=== PATIENT | male | born 1960 | race Caucasian/White ===

== ENCOUNTER 2023-06-17 03:08 | Inpatient (IN) | payer OTHER ==
[2023-06-17 05:37] VITALS: BMI 31.1
[2023-06-17] MEDS ORDERED: Ondansetron PF 4 MG/2 ML Vial IVP PRN (06:08)
[2023-06-17] MEDS ORDERED: Acetaminophen 325 MG TAB PO PRN (06:08)
[2023-06-17 06:41] LABS: Hematocrit 37.1 % (42.0-52.0); Hemoglobin 12.2 g/dL (14.0-18.0); Manual Diff?? YES; Mean Corpuscular HGB CONC 32.9 g/dL (32.0-36.0); Mean Corpuscular Hemoglobin 30.3 pg (27.0-31.0); Mean Corpuscular Volume 92.3 fl (78.0-98.0); Mean Platelet Volume 11.5 fL (7.4-10.4); Platelet Count 90 10x3/uL (130-400); RBC Distribution Width 15.8 % (11.5-14.5); Red Blood Cell (RBC) Count 4.02 mill/uL (4.70-6.10); White Blood Cell (WBC) Count 9.8 10x3/uL (4.8-10.8)
[2023-06-17 06:43] LABS: Delete Auto Diff?? YES
[2023-06-17 06:58] LABS: ALT (SGPT) 26 U/L (8-55); AST (SGOT) 41 U/L (5-34); Albumin 2.9 g/dL (3.4-4.8); Alkaline Phosphatase 114 U/L (40-110); Anion Gap 13 mmol/L (10-20); BUN (Urea Nitrogen) 55 mg/dL (8.4-25.7); Bilirubin, Total 1.5 mg/dL (0.2-1.2); Calc. Creatinine Clearance 52 mL/min (70-130); Calcium 8.9 mg/dL (7.8-10.44); Carbon Dioxide 18 mmol/L (23-31); Chloride 106 mmol/L (98-107); Estimated GFR 34; Globulin 3.8 g/dL (2.4-3.5); Glucose 90 mg/dL (80-115); Potassium 3.6 mmol/L (3.5-5.1); Protein, Total 6.7 g/dL (5.8-8.1); Sodium 133 mmol/L (136-145)
[2023-06-17] MEDS: HYDROcodone/Acetaminophen 5/325 mg Tablet PO SCH (07:05)
[2023-06-17 07:23] LABS: Band 24 % (5-11); Burr Cells SLIGHT = 2-5 cells HPF (0-1); CellaVision Operator ID LAB.KW3; Eosinophils 1 % (0-10); Monocytes 4 % (0-10); Neutrophil 71 % (42-75); Platelet Adequacy Comment Platelets Decreased; Poikilocytosis SLIGHT = 6-15 cells HPF (0-5); Polychromasia SLIGHT = 2-3 cells HPF (0-2); Total Cell Count 100
[2023-06-17] MEDS ORDERED: Vancomycin 1 GM in Sodium Chloride 0.9% 250 ML 250 ML IVPB SCH (09:00)
[2023-06-17] MEDS ORDERED: Lisinopril 10 MG TAB PO SCH (09:00)
[2023-06-17] MEDS ORDERED: Amiodarone 200 MG TAB PO SCH (09:00)
[2023-06-17] MEDS ORDERED: Carvedilol 6.25 MG TAB PO SCH (09:00)
[2023-06-17] MEDS: Aspirin 81 mg Enteric Coated Tablet PO SCH (10:16)
[2023-06-17] MEDS: cefTRIAXone\\ROCEPHIN 2 GM in Sodium Chloride 0.9% 100 ML IVPB SCH (10:16)
[2023-06-17] MEDS: Clopidogrel Bisulfate 75 MG TAB PO SCH (10:17)
[2023-06-17] MEDS: Fluconazole 100 MG TAB PO SCH (10:17)
[2023-06-17] MEDS: methylPREDNISolone Sod Succ/PF 125 MG/2 ML VIAL IVP SCH (10:17)
[2023-06-17] MEDS: Loratadine 10 MG TAB PO SCH (10:17)
[2023-06-17] MEDS: HYDROcodone/Acetaminophen 5/325 mg Tablet PO PRN (10:38)
[2023-06-17] MEDS: Vancomycin (BATCH) 2 GM in Premix 1 BAG IVPB SCH (10:39)
[2023-06-17] MEDS ORDERED: Vancomycin (BATCH) 1.25 GM in Premix 1 BAG IVPB SCH (12:00)
[2023-06-17] MEDS: Atorvastatin Calcium 40 MG TAB PO SCH (20:37)
[2023-06-18 05:56] LABS: Hematocrit 38.8 % (42.0-52.0); Hemoglobin 12.7 g/dL (14.0-18.0); Manual Diff?? YES; Mean Corpuscular HGB CONC 32.7 g/dL (32.0-36.0); Mean Corpuscular Volume 91.7 fl (78.0-98.0); Mean Platelet Volume 11.8 fL (7.4-10.4); Red Blood Cell (RBC) Count 4.23 mill/uL (4.70-6.10); White Blood Cell (WBC) Count 9.3 10x3/uL (4.8-10.8)
[2023-06-18 06:00] LABS: Delete Auto Diff?? YES; Platelet Count 89 10x3/uL (130-400)
[2023-06-18 06:19] LABS: Anion Gap 11 mmol/L (10-20); BUN (Urea Nitrogen) 42 mg/dL (8.4-25.7); Calc. Creatinine Clearance 100 mL/min (70-130); Calcium 8.7 mg/dL (7.8-10.44); Carbon Dioxide 19 mmol/L (23-31); Chloride 110 mmol/L (98-107); Estimated GFR 75; Glucose 153 mg/dL (80-115); Potassium 4.3 mmol/L (3.5-5.1); Sodium 136 mmol/L (136-145)
[2023-06-18 06:27] LABS: Anisocytosis SLIGHT = 6-15 cells HPF (0-5); Band 16 % (5-11); Burr Cells SLIGHT = 2-5 cells HPF (0-1); CellaVision Operator ID lab.sh2; Lymphocytes 2 % (21-51); Macrocytosis SLIGHT = 6-15 cells HPF (0-5); Neutrophil 82 % (42-75); Ovalocytes SLIGHT = 2-5 cells HPF (0-1); Platelet Adequacy Comment Platelets Decreased; Poikilocytosis SLIGHT = 6-15 cells HPF (0-5); Polychromasia SLIGHT = 2-3 cells HPF (0-2); Total Cell Count 100
[2023-06-18] MEDS: Vancomycin (BATCH) 1.25 GM in Premix 1 BAG IVPB SCH (09:25)
[2023-06-18] MEDS ORDERED: Vancomycin (BATCH) 1.25 GM in Premix 1 BAG IVPB SCH (11:00)
[2023-06-19 04:37] LABS: #Monocytes 0.5 thou/uL (0.11-0.59); #Neutrophils 9.2 thou/uL (1.40-6.50); %Basophils 0.3 % (0.0-1.0); %Lymphocytes 5.9 % (21.0-51.0); %Monocytes 4.7 % (0.0-10.0); %Neutrophils 87.8 % (42.0-75.0); Hematocrit 38.3 % (42.0-52.0); Hemoglobin 12.6 g/dL (14.0-18.0); Mean Corpuscular HGB CONC 32.9 g/dL (32.0-36.0); Mean Corpuscular Hemoglobin 30.1 pg (27.0-31.0); Mean Corpuscular Volume 91.4 fl (78.0-98.0); Mean Platelet Volume 11.9 fL (7.4-10.4); Platelet Count 110 10x3/uL (130-400); RBC Distribution Width 16.3 % (11.5-14.5); Red Blood Cell (RBC) Count 4.19 mill/uL (4.70-6.10); White Blood Cell (WBC) Count 10.4 10x3/uL (4.8-10.8)
[2023-06-19 04:58] LABS: Anion Gap 10 mmol/L (10-20); BUN (Urea Nitrogen) 42 mg/dL (8.4-25.7); Calc. Creatinine Clearance 110 mL/min (70-130); Calcium 9.4 mg/dL (7.8-10.44); Carbon Dioxide 23 mmol/L (23-31); Chloride 110 mmol/L (98-107); Estimated GFR 84; Glucose 146 mg/dL (80-115); Sodium 139 mmol/L (136-145)
[2023-06-19] MEDS: Vancomycin 1 GM in Premix 1 BAG IVPB SCH (11:08)
[2023-06-19] MEDS: Amlodipine 10 MG TAB PO SCH (12:35)
[2023-06-19] MEDS: Carvedilol 6.25 MG TAB PO SCH (15:49)
[2023-06-19] MEDS: Lisinopril 10 MG TAB PO SCH (15:49)
[2023-06-20] MEDS: Amiodarone 200 MG TAB PO SCH (09:12)
[2023-06-20] MEDS: Lisinopril 10 MG TAB PO SCH (09:12)
[2023-06-20 17:57] LABS: #Monocytes 0.4 thou/uL (0.11-0.59); %Basophils 0.2 % (0.0-1.0); %Monocytes 6.7 % (0.0-10.0); %Neutrophils 83.3 % (42.0-75.0); Hemoglobin 12.9 g/dL (14.0-18.0); Mean Corpuscular HGB CONC 33.1 g/dL (32.0-36.0); Mean Corpuscular Hemoglobin 30.1 pg (27.0-31.0); Mean Corpuscular Volume 91.1 fl (78.0-98.0); Mean Platelet Volume 11.3 fL (7.4-10.4); Platelet Count 127 10x3/uL (130-400); RBC Distribution Width 16.2 % (11.5-14.5); Red Blood Cell (RBC) Count 4.28 mill/uL (4.70-6.10)
[2023-06-20 18:29] LABS: Anion Gap 9 mmol/L (10-20); BUN (Urea Nitrogen) 40 mg/dL (8.4-25.7); Calc. Creatinine Clearance 127 mL/min (70-130); Calcium 9.1 mg/dL (7.8-10.44); Carbon Dioxide 23 mmol/L (23-31); Chloride 110 mmol/L (98-107); Estimated GFR 96; Glucose 185 mg/dL (80-115); Potassium 3.9 mmol/L (3.5-5.1); Sodium 138 mmol/L (136-145)
[2023-06-20 22:00] LABS: Vancomycin, Trough 14.3 ug/mL
[2023-06-21 07:23] LABS: Anion Gap 11 mmol/L (10-20); BUN (Urea Nitrogen) 40 mg/dL (8.4-25.7); Calc. Creatinine Clearance 128 mL/min (70-130); Carbon Dioxide 21 mmol/L (23-31); Chloride 110 mmol/L (98-107); Estimated GFR 97; Glucose 162 mg/dL (80-115); Potassium 3.9 mmol/L (3.5-5.1); Sodium 138 mmol/L (136-145)
[2023-06-21 07:32] LABS: #Monocytes 0.3 thou/uL (0.11-0.59); #Neutrophils 5.3 thou/uL (1.40-6.50); %Basophils 0.3 % (0.0-1.0); %Lymphocytes 7.2 % (21.0-51.0); %Monocytes 4.4 % (0.0-10.0); Hematocrit 43.5 % (42.0-52.0); Hemoglobin 13.8 g/dL (14.0-18.0); Mean Corpuscular HGB CONC 31.7 g/dL (32.0-36.0); Mean Corpuscular Hemoglobin 29.7 pg (27.0-31.0); Mean Corpuscular Volume 93.8 fl (78.0-98.0); Mean Platelet Volume 11.3 fL (7.4-10.4); Platelet Count 132 10x3/uL (130-400); RBC Distribution Width 16.4 % (11.5-14.5); Red Blood Cell (RBC) Count 4.64 mill/uL (4.70-6.10); White Blood Cell (WBC) Count 6.1 10x3/uL (4.8-10.8)
[2023-06-22 06:24] LABS: #Monocytes 0.3 thou/uL (0.11-0.59); #Neutrophils 6.8 thou/uL (1.40-6.50); %Basophils 0.1 % (0.0-1.0); %Lymphocytes 4.1 % (21.0-51.0); %Monocytes 3.7 % (0.0-10.0); %Neutrophils 91.2 % (42.0-75.0); Hematocrit 41.1 % (42.0-52.0); Hemoglobin 13.3 g/dL (14.0-18.0); Mean Corpuscular HGB CONC 32.4 g/dL (32.0-36.0); Mean Corpuscular Hemoglobin 30.4 pg (27.0-31.0); Mean Corpuscular Volume 94.1 fl (78.0-98.0); Mean Platelet Volume 11.4 fL (7.4-10.4); Platelet Count 120 10x3/uL (130-400); RBC Distribution Width 15.9 % (11.5-14.5); Red Blood Cell (RBC) Count 4.37 mill/uL (4.70-6.10); White Blood Cell (WBC) Count 7.5 10x3/uL (4.8-10.8)
[2023-06-22 06:48] LABS: Anion Gap 8 mmol/L (10-20); BUN (Urea Nitrogen) 37 mg/dL (8.4-25.7); Calc. Creatinine Clearance 134 mL/min (70-130); Calcium 8.7 mg/dL (7.8-10.44); Carbon Dioxide 26 mmol/L (23-31); Chloride 110 mmol/L (98-107); Estimated GFR 98; Glucose 157 mg/dL (80-115); Sodium 140 mmol/L (136-145)
[2023-06-22 09:40] LABS: Vancomycin, Trough 13.7 ug/mL
[2023-06-23 07:10] LABS: #Monocytes 0.2 thou/uL (0.11-0.59); #Neutrophils 8.4 thou/uL (1.40-6.50); %Basophils 0.1 % (0.0-1.0); %Lymphocytes 3.3 % (21.0-51.0); %Monocytes 2.3 % (0.0-10.0); %Neutrophils 93.4 % (42.0-75.0); Hematocrit 45.1 % (42.0-52.0); Hemoglobin 14.2 g/dL (14.0-18.0); Mean Corpuscular HGB CONC 31.5 g/dL (32.0-36.0); Mean Corpuscular Volume 95.3 fl (78.0-98.0); Mean Platelet Volume 11.4 fL (7.4-10.4); Platelet Count 124 10x3/uL (130-400); Red Blood Cell (RBC) Count 4.73 mill/uL (4.70-6.10)
[2023-06-23 07:35] LABS: Anion Gap 10 mmol/L (10-20); BUN (Urea Nitrogen) 36 mg/dL (8.4-25.7); Calc. Creatinine Clearance 134 mL/min (70-130); Calcium 8.6 mg/dL (7.8-10.44); Carbon Dioxide 27 mmol/L (23-31); Chloride 106 mmol/L (98-107); Estimated GFR 98; Glucose 161 mg/dL (80-115); Potassium 4.2 mmol/L (3.5-5.1); Sodium 139 mmol/L (136-145)
[2023-06-23] MEDS: Carvedilol 3.125 MG TAB PO SCH (08:16)
[2023-06-23] MEDS: HYDROcodone/Acetaminophen 10/325 mg Tablet PO PRN (08:29)
[2023-06-24 04:41] LABS: #Monocytes 0.3 thou/uL (0.11-0.59); #Neutrophils 7.7 thou/uL (1.40-6.50); %Basophils 0.1 % (0.0-1.0); %Lymphocytes 3.4 % (21.0-51.0); %Monocytes 3.3 % (0.0-10.0); %Neutrophils 92.4 % (42.0-75.0); Hematocrit 41.4 % (42.0-52.0); Hemoglobin 13.1 g/dL (14.0-18.0); Mean Corpuscular HGB CONC 31.6 g/dL (32.0-36.0); Mean Corpuscular Hemoglobin 30.1 pg (27.0-31.0); Mean Corpuscular Volume 95.2 fl (78.0-98.0); Mean Platelet Volume 11.7 fL (7.4-10.4); Platelet Count 133 10x3/uL (130-400); Red Blood Cell (RBC) Count 4.35 mill/uL (4.70-6.10); White Blood Cell (WBC) Count 8.3 10x3/uL (4.8-10.8)
[2023-06-24 05:49] LABS: Anion Gap 10 mmol/L (10-20); BUN (Urea Nitrogen) 39 mg/dL (8.4-25.7); Calc. Creatinine Clearance 122 mL/min (70-130); Carbon Dioxide 27 mmol/L (23-31); Estimated GFR 95; Potassium 4.5 mmol/L (3.5-5.1)
[2023-06-24 06:24] LABS: Calcium 8.6 mg/dL (7.8-10.44); Chloride 105 mmol/L (98-107); Glucose 196 mg/dL (80-115); Sodium 137 mmol/L (136-145)
[2023-06-24 08:40] VITALS: TEMP 98.1
[2023-06-24 08:55] VITALS: BP 140/76
[2023-06-24 10:44] LABS: Vancomycin, Trough 13.7 ug/mL
== END 2023-06-24 16:57 | DRG 596 ==
LOC: EEVIPCON → T4-B 04:24 → OBSVTOIN 10:56
PROVIDERS: ADMIT Family Medicine; ATTEND Internal Medicine
DX: L51.1 Stevens-Johnson syndrome (principal); L03.114 Cellulitis of left upper limb; L03.113 Cellulitis of right upper limb; B19.10 Unspecified viral hepatitis B without hepatic coma; C22.0 Liver cell carcinoma; T45.1X5A Adverse effect of antineoplastic and immunosuppressive drugs, initial encounter; L30.4 Erythema intertrigo; I10 Essential (primary) hypertension; K74.60 Unspecified cirrhosis of liver; Z79.82 Long term (current) use of aspirin; Z79.899 Other long term (current) drug therapy; Z87.891 Personal history of nicotine dependence; Z98.890 Other specified postprocedural states
CPT/HCPCS: 36415; 36416; 80048; 80053; 80202; 84145; 85025; 86140; 87070; 87077; 87186; 87205; 96374; 96375; 97139; G0378; J0696; J2930; J3370; J3370-JW; J3490

== ENCOUNTER 2025-01-11 14:50 | Inpatient (IN) | payer OTHER ==
[2025-01-11 15:37] LABS: #Basophils 0.03 10x3/uL (0.0-0.2); #Eosinophils 0.06 10x3/uL (0.0-0.7); #Monocytes 1.19 10x3/uL (0.11-0.59); #Neutrophils 6.56 10x3/uL (1.40-6.50); %Basophils 0.4 % (0.0-1.0); %Eosinophils 0.7 % (0.0-10.0); %Lymphocytes 7.7 % (21.0-51.0); %Monocytes 14.0 % (0.0-10.0); %Neutrophils 76.8 % (42.0-75.0); Hematocrit 20.0 % (42.0-52.0); Hemoglobin 6.1 g/dL (14.0-18.0); Mean Corpuscular Hemoglobin 24.7 pg (27.0-31.0); Mean Corpuscular Volume 81.0 fL (78.0-98.0); Platelet Count 236 10x3/uL (130-400); Red Blood Cell (RBC) Count 2.47 mill/uL (4.70-6.10); White Blood Cell (WBC) Count 8.53 10x3/uL (4.8-10.8)
[2025-01-11 15:55] LABS: ALT (SGPT) 67 U/L (Less than 45); AST (SGOT) 254 U/L (11-34); Albumin 2.2 g/dL (3.1-4.5); Alkaline Phosphatase 1159 U/L (40-110); Anion Gap 15 mmol/L (10-20); BUN (Urea Nitrogen) 72 mg/dL (8.4-25.7); Bilirubin, Total 1.6 mg/dL (0.3-1.2); Calc. Creatinine Clearance 0 mL/min (70-130); Calcium 9.3 mg/dL (7.8-10.44); Carbon Dioxide 20 mmol/L (23-31); Chloride 100 mmol/L (98-107); Globulin 5.1 g/dL (2.4-3.5); Glucose 140 mg/dL (80-115); Potassium 5.5 mmol/L (3.5-5.1); Sodium 129 mmol/L (136-145)
[2025-01-11 20:13] LABS: INR-International Normal Ratio 1.4; Prothrombin Time 16.8 sec (12.0-14.7)
[2025-01-11 20:15] LABS: PTT 36.3 sec (22.9-36.1)
[2025-01-11 22:19] LABS: Bacteria/HPF None Seen HPF (None Seen); CAUTI Indications for Culture Fever or rigors; Glucose, Urine (Dipstick) Normal (Negative); Leukocyte Negative Leu/uL (Negative); Protein, Urine (Dipstick) 10 mg/dL (Neg-Trace); RBC/HPF 0-3 HPF (0-3); Specific Gravity, Urine 1.016 (1.002-1.036); WBC/HPF 0-3 HPF (0-3)
[2025-01-11 22:21] LABS: Urine Culture Reflex No No
[2025-01-11 22:27] LABS: Cocaine Metabolite Screen Negative (Negative); THC/Cannabinoid Screen Negative (Negative); Tricyclic Screen Negative (Negative)
[2025-01-11] MEDS: Heparin 5,000 UNITS/ML VIAL SC SCH (22:31)
[2025-01-11] MEDS: Pantoprazole 40 MG VIAL IVP SCH (22:32)
[2025-01-12 00:28] VITALS: BMI 34.6
[2025-01-12 01:57] LABS: Sodium, Urine Less than 20 mmol/L (Not Available)
[2025-01-12] MEDS: Albumin 25% 25 GM (100 mL) BOT IVPB SCH (03:06)
[2025-01-12 04:49] LABS: #Basophils 0.03 10x3/uL (0.0-0.2); #Eosinophils 0.06 10x3/uL (0.0-0.7); #Monocytes 0.81 10x3/uL (0.11-0.59); #Neutrophils 4.40 10x3/uL (1.40-6.50); %Basophils 0.5 % (0.0-1.0); %Eosinophils 1.0 % (0.0-10.0); %Lymphocytes 9.8 % (21.0-51.0); %Monocytes 13.7 % (0.0-10.0); %Neutrophils 74.5 % (42.0-75.0); Hematocrit 26.2 % (42.0-52.0); Hemoglobin 8.0 g/dL (14.0-18.0); Mean Corpuscular Hemoglobin 25.1 pg (27.0-31.0); Mean Corpuscular Volume 82.1 fL (78.0-98.0); Platelet Count 171 10x3/uL (130-400); Red Blood Cell (RBC) Count 3.19 mill/uL (4.70-6.10); White Blood Cell (WBC) Count 5.91 10x3/uL (4.8-10.8)
[2025-01-12 05:17] LABS: ALT (SGPT) 62 U/L (Less than 45); AST (SGOT) 208 U/L (11-34); Albumin 2.6 g/dL (3.1-4.5); Alkaline Phosphatase 1036 U/L (40-110); Anion Gap 12 mmol/L (10-20); BUN (Urea Nitrogen) 67 mg/dL (8.4-25.7); Bilirubin, Total 3.2 mg/dL (0.3-1.2); Calc. Creatinine Clearance 34 mL/min (70-130); Calcium 9.5 mg/dL (7.8-10.44); Carbon Dioxide 22 mmol/L (23-31); Chloride 100 mmol/L (98-107); Globulin 4.7 g/dL (2.4-3.5); Glucose 113 mg/dL (80-115); Potassium 4.4 mmol/L (3.5-5.1); Sodium 130 mmol/L (136-145)
[2025-01-12] MEDS: Amiodarone 200 MG TAB PO SCH (10:28)
[2025-01-12] MEDS: PNEUMOC 20-VAL CONJ-DIP CRM/PF 0.5 ML SYRINGE IM ONE (10:32)
[2025-01-12] MEDS ORDERED: Lidocaine 1% PF 5 ML VIAL ONE (14:38)
[2025-01-12] MEDS ORDERED: Sodium Bicarbonate 2.5 MEQ/5 ML SDV ONE (14:38)
[2025-01-12 17:11] LABS: RBC Count-Automated (BF) 229 /cu.mm; WBC/Nucleated-Auto (BF) 143 /cu.mm
[2025-01-12] MEDS: Furosemide 40 MG (4 mL) VIAL SLOW IVP SCH (17:13)
[2025-01-12 19:19] LABS: BF Segmented Neutrophils 9 %; Cell Count Non Hematic 60 %
[2025-01-12] MEDS: Octreotide Acetate 1,250 MCG in Sodium Chloride 0.9% 250 ML 250 ML IVPB SCH (22:30)
[2025-01-13 04:35] LABS: #Basophils Less than 0.03 10x3/uL (0.0-0.2); #Eosinophils 0.05 10x3/uL (0.0-0.7); #Monocytes 0.56 10x3/uL (0.11-0.59); #Neutrophils 2.84 10x3/uL (1.40-6.50); %Basophils 0.5 % (0.0-1.0); %Eosinophils 1.3 % (0.0-10.0); %Lymphocytes 12.3 % (21.0-51.0); %Monocytes 14.1 % (0.0-10.0); %Neutrophils 71.3 % (42.0-75.0); Hematocrit 25.7 % (42.0-52.0); Hemoglobin 7.9 g/dL (14.0-18.0); Mean Corpuscular Hemoglobin 25.4 pg (27.0-31.0); Mean Corpuscular Volume 82.6 fL (78.0-98.0); Platelet Count 142 10x3/uL (130-400); Red Blood Cell (RBC) Count 3.11 mill/uL (4.70-6.10); White Blood Cell (WBC) Count 3.98 10x3/uL (4.8-10.8)
[2025-01-13 04:57] LABS: ALT (SGPT) 55 U/L (Less than 45); AST (SGOT) 185 U/L (11-34); Albumin 3.1 g/dL (3.1-4.5); Alkaline Phosphatase 934 U/L (40-110); Anion Gap 11 mmol/L (10-20); BUN (Urea Nitrogen) 59 mg/dL (8.4-25.7); Bilirubin, Total 2.8 mg/dL (0.3-1.2); Calc. Creatinine Clearance 44 mL/min (70-130); Calcium 9.8 mg/dL (7.8-10.44); Carbon Dioxide 23 mmol/L (23-31); Chloride 102 mmol/L (98-107); Globulin 3.9 g/dL (2.4-3.5); Glucose 89 mg/dL (80-115); Potassium 4.1 mmol/L (3.5-5.1); Sodium 132 mmol/L (136-145)
[2025-01-13] MEDS: Furosemide 40 MG (4 mL) VIAL SLOW IVP SCH (06:01)
[2025-01-13] MEDS: Albumin 25% 25 GM (100 mL) BOT IVPB SCH (17:24)
[2025-01-14 04:04] LABS: #Basophils 0.03 10x3/uL (0.0-0.2); #Eosinophils 0.07 10x3/uL (0.0-0.7); #Monocytes 0.74 10x3/uL (0.11-0.59); #Neutrophils 3.58 10x3/uL (1.40-6.50); %Basophils 0.6 % (0.0-1.0); %Eosinophils 1.4 % (0.0-10.0); %Lymphocytes 10.3 % (21.0-51.0); %Monocytes 14.9 % (0.0-10.0); %Neutrophils 72.4 % (42.0-75.0); Hematocrit 25.4 % (42.0-52.0); Hemoglobin 7.7 g/dL (14.0-18.0); Mean Corpuscular Hemoglobin 25.1 pg (27.0-31.0); Mean Corpuscular Volume 82.7 fL (78.0-98.0); Platelet Count 150 10x3/uL (130-400); Red Blood Cell (RBC) Count 3.07 mill/uL (4.70-6.10); White Blood Cell (WBC) Count 4.95 10x3/uL (4.8-10.8)
[2025-01-14 04:43] LABS: ALT (SGPT) 45 U/L (Less than 45); AST (SGOT) 144 U/L (11-34); Albumin 3.3 g/dL (3.1-4.5); Alkaline Phosphatase 756 U/L (40-110); Anion Gap 12 mmol/L (10-20); BUN (Urea Nitrogen) 53 mg/dL (8.4-25.7); Bilirubin, Total 2.0 mg/dL (0.3-1.2); Calc. Creatinine Clearance 46 mL/min (70-130); Calcium 9.4 mg/dL (7.8-10.44); Carbon Dioxide 24 mmol/L (23-31); Chloride 102 mmol/L (98-107); Globulin 3.4 g/dL (2.4-3.5); Glucose 98 mg/dL (80-115); Potassium 4.3 mmol/L (3.5-5.1); Sodium 134 mmol/L (136-145)
[2025-01-14] MEDS: EPOETIN ALFA-EPBX (ESRD) 10,000 UNITS/ML VIAL SC SCH (14:07)
[2025-01-14 15:13] LABS: Hematocrit 29.2 % (42.0-52.0); Hemoglobin 8.9 g/dL (14.0-18.0)
[2025-01-15 04:48] LABS: ALT (SGPT) 41 U/L (Less than 45); AST (SGOT) 125 U/L (11-34); Albumin 3.0 g/dL (3.1-4.5); Alkaline Phosphatase 722 U/L (40-110); Anion Gap 14 mmol/L (10-20); BUN (Urea Nitrogen) 49 mg/dL (8.4-25.7); Bilirubin, Total 2.6 mg/dL (0.3-1.2); Calc. Creatinine Clearance 50 mL/min (70-130); Calcium 9.6 mg/dL (7.8-10.44); Carbon Dioxide 24 mmol/L (23-31); Chloride 100 mmol/L (98-107); Globulin 3.8 g/dL (2.4-3.5); Glucose 96 mg/dL (80-115); Potassium 4.1 mmol/L (3.5-5.1); Sodium 134 mmol/L (136-145)
[2025-01-15 05:38] LABS: #Basophils 0.03 10x3/uL (0.0-0.2); #Eosinophils 0.10 10x3/uL (0.0-0.7); #Monocytes 0.70 10x3/uL (0.11-0.59); #Neutrophils 3.67 10x3/uL (1.40-6.50); %Basophils 0.6 % (0.0-1.0); %Eosinophils 2.0 % (0.0-10.0); %Lymphocytes 11.0 % (21.0-51.0); %Monocytes 13.8 % (0.0-10.0); %Neutrophils 72.2 % (42.0-75.0); Hematocrit 28.3 % (42.0-52.0); Hemoglobin 8.7 g/dL (14.0-18.0); Mean Corpuscular Hemoglobin 25.4 pg (27.0-31.0); Mean Corpuscular Volume 82.7 fL (78.0-98.0); Platelet Count 139 10x3/uL (130-400); Red Blood Cell (RBC) Count 3.42 mill/uL (4.70-6.10); White Blood Cell (WBC) Count 5.08 10x3/uL (4.8-10.8)
[2025-01-16 05:42] LABS: ALT (SGPT) 40 U/L (Less than 45); AST (SGOT) 132 U/L (11-34); Albumin 2.8 g/dL (3.1-4.5); Alkaline Phosphatase 786 U/L (40-110); Anion Gap 15 mmol/L (10-20); BUN (Urea Nitrogen) 48 mg/dL (8.4-25.7); Bilirubin, Total 2.0 mg/dL (0.3-1.2); Calc. Creatinine Clearance 55 mL/min (70-130); Calcium 9.6 mg/dL (7.8-10.44); Carbon Dioxide 23 mmol/L (23-31); Chloride 101 mmol/L (98-107); Globulin 4.0 g/dL (2.4-3.5); Glucose 95 mg/dL (80-115); Potassium 4.0 mmol/L (3.5-5.1); Sodium 135 mmol/L (136-145)
[2025-01-16 05:47] LABS: #Basophils Less than 0.03 10x3/uL (0.0-0.2); #Eosinophils 0.05 10x3/uL (0.0-0.7); #Monocytes 0.72 10x3/uL (0.11-0.59); #Neutrophils 3.51 10x3/uL (1.40-6.50); %Basophils 0.4 % (0.0-1.0); %Eosinophils 1.0 % (0.0-10.0); %Lymphocytes 13.8 % (21.0-51.0); %Monocytes 14.4 % (0.0-10.0); %Neutrophils 70.2 % (42.0-75.0); Hematocrit 28.5 % (42.0-52.0); Hemoglobin 9.0 g/dL (14.0-18.0); Mean Corpuscular Hemoglobin 26.1 pg (27.0-31.0); Mean Corpuscular Volume 82.6 fL (78.0-98.0); Platelet Count 131 10x3/uL (130-400); Red Blood Cell (RBC) Count 3.45 mill/uL (4.70-6.10); White Blood Cell (WBC) Count 5.00 10x3/uL (4.8-10.8)
[2025-01-16] MEDS ORDERED: Albumin 25% 25 GM (100 mL) BOT IVPB SCH (12:00)
[2025-01-16] MEDS: Albumin 25% 25 GM (100 mL) BOT IVPB SCH (12:07)
[2025-01-17 04:41] LABS: #Basophils Less than 0.03 10x3/uL (0.0-0.2); #Eosinophils 0.07 10x3/uL (0.0-0.7); #Monocytes 0.50 10x3/uL (0.11-0.59); #Neutrophils 3.24 10x3/uL (1.40-6.50); %Basophils 0.5 % (0.0-1.0); %Eosinophils 1.6 % (0.0-10.0); %Lymphocytes 12.3 % (21.0-51.0); %Monocytes 11.4 % (0.0-10.0); %Neutrophils 74.0 % (42.0-75.0); Hematocrit 27.3 % (42.0-52.0); Hemoglobin 8.4 g/dL (14.0-18.0); Mean Corpuscular Hemoglobin 25.8 pg (27.0-31.0); Mean Corpuscular Volume 83.7 fL (78.0-98.0); Platelet Count 106 10x3/uL (130-400); Red Blood Cell (RBC) Count 3.26 mill/uL (4.70-6.10); White Blood Cell (WBC) Count 4.38 10x3/uL (4.8-10.8)
[2025-01-17 04:50] LABS: ALT (SGPT) 35 U/L (Less than 45); AST (SGOT) 127 U/L (11-34); Albumin 3.6 g/dL (3.1-4.5); Alkaline Phosphatase 704 U/L (40-110); Anion Gap 16 mmol/L (10-20); BUN (Urea Nitrogen) 45 mg/dL (8.4-25.7); Bilirubin, Total 2.2 mg/dL (0.3-1.2); Calc. Creatinine Clearance 58 mL/min (70-130); Calcium 9.7 mg/dL (7.8-10.44); Carbon Dioxide 23 mmol/L (23-31); Chloride 101 mmol/L (98-107); Globulin 3.6 g/dL (2.4-3.5); Glucose 95 mg/dL (80-115); Potassium 4.7 mmol/L (3.5-5.1); Sodium 135 mmol/L (136-145)
[2025-01-17 05:21] LABS: Anisocytosis SLIGHT = 6-15 cells HPF (0-5); Macrocytosis SLIGHT = 6-15 cells HPF (0-5); Platelet Adequacy Comment Platelets Decreased; Polychromasia SLIGHT = 2-3 cells HPF (0-2); Target Cells SLIGHT = 2-5 cells HPF (0-1)
[2025-01-18 04:27] LABS: #Basophils 0.04 10x3/uL (0.0-0.2); #Eosinophils 0.09 10x3/uL (0.0-0.7); #Monocytes 0.53 10x3/uL (0.11-0.59); #Neutrophils 3.65 10x3/uL (1.40-6.50); %Basophils 0.8 % (0.0-1.0); %Eosinophils 1.9 % (0.0-10.0); %Lymphocytes 11.1 % (21.0-51.0); %Monocytes 10.9 % (0.0-10.0); %Neutrophils 75.1 % (42.0-75.0); Hematocrit 29.2 % (42.0-52.0); Hemoglobin 8.8 g/dL (14.0-18.0); Mean Corpuscular Hemoglobin 25.7 pg (27.0-31.0); Mean Corpuscular Volume 85.4 fL (78.0-98.0); Platelet Count 105 10x3/uL (130-400); Red Blood Cell (RBC) Count 3.42 mill/uL (4.70-6.10); White Blood Cell (WBC) Count 4.86 10x3/uL (4.8-10.8)
[2025-01-18 04:46] LABS: ALT (SGPT) 33 U/L (Less than 45); AST (SGOT) 116 U/L (11-34); Albumin 3.3 g/dL (3.1-4.5); Alkaline Phosphatase 684 U/L (40-110); Anion Gap 13 mmol/L (10-20); BUN (Urea Nitrogen) 41 mg/dL (8.4-25.7); Bilirubin, Total 2.0 mg/dL (0.3-1.2); Calc. Creatinine Clearance 68 mL/min (70-130); Calcium 9.9 mg/dL (7.8-10.44); Carbon Dioxide 23 mmol/L (23-31); Chloride 101 mmol/L (98-107); Globulin 3.8 g/dL (2.4-3.5); Glucose 95 mg/dL (80-115); Potassium 4.0 mmol/L (3.5-5.1); Sodium 133 mmol/L (136-145)
[2025-01-18 12:15] VITALS: BMI 34.6
[2025-01-18] MEDS: Furosemide 40 MG (4 mL) VIAL SLOW IVP SCH (12:53)
[2025-01-18] MEDS: Acetaminophen 500 MG TAB PO PRN (21:30)
[2025-01-19 05:04] LABS: #Basophils 0.05 10x3/uL (0.0-0.2); #Eosinophils 0.08 10x3/uL (0.0-0.7); #Monocytes 0.61 10x3/uL (0.11-0.59); #Neutrophils 3.25 10x3/uL (1.40-6.50); %Basophils 1.1 % (0.0-1.0); %Eosinophils 1.8 % (0.0-10.0); %Lymphocytes 12.5 % (21.0-51.0); %Monocytes 13.3 % (0.0-10.0); %Neutrophils 71.1 % (42.0-75.0); Hematocrit 27.7 % (42.0-52.0); Hemoglobin 8.4 g/dL (14.0-18.0); Mean Corpuscular Hemoglobin 25.5 pg (27.0-31.0); Mean Corpuscular Volume 84.2 fL (78.0-98.0); Platelet Count 106 10x3/uL (130-400); Red Blood Cell (RBC) Count 3.29 mill/uL (4.70-6.10); White Blood Cell (WBC) Count 4.57 10x3/uL (4.8-10.8)
[2025-01-19 05:24] LABS: ALT (SGPT) 40 U/L (Less than 45); AST (SGOT) 140 U/L (11-34); Albumin 3.3 g/dL (3.1-4.5); Alkaline Phosphatase 735 U/L (40-110); Anion Gap 18 mmol/L (10-20); BUN (Urea Nitrogen) 39 mg/dL (8.4-25.7); Bilirubin, Total 2.2 mg/dL (0.3-1.2); Calc. Creatinine Clearance 66 mL/min (70-130); Calcium 9.6 mg/dL (7.8-10.44); Carbon Dioxide 23 mmol/L (23-31); Chloride 98 mmol/L (98-107); Globulin 3.6 g/dL (2.4-3.5); Glucose 106 mg/dL (80-115); Potassium 4.0 mmol/L (3.5-5.1); Sodium 135 mmol/L (136-145)
[2025-01-19 15:07] VITALS: BP 132/66; TEMP 97.9
== END 2025-01-19 18:06 | DRG 432 ==
LOC: EEVIPCON 14:50 → ERS 14:50 → 2NO 18:38
PROVIDERS: ADMIT Family Medicine; ATTEND Family Medicine
PROC: 30233J1 Transfusion of Nonautologous Serum Albumin into Peripheral Vein, Percutaneous Approach (ICD-10-PCS; 2025-01-11)
PROC: 30233N1 Transfusion of Nonautologous Red Blood Cells into Peripheral Vein, Percutaneous Approach (ICD-10-PCS; 2025-01-11)
PROC: 0W9G3ZZ Drainage of Peritoneal Cavity, Percutaneous Approach (ICD-10-PCS; principal; 2025-01-13)
PROC: 3E0234Z Introduction of Serum, Toxoid and Vaccine into Muscle, Percutaneous Approach (ICD-10-PCS; 2025-01-13)
DX: K74.60 Unspecified cirrhosis of liver (principal); K76.7 Hepatorenal syndrome; C22.0 Liver cell carcinoma; N17.9 Acute kidney failure, unspecified; E87.1 Hypo-osmolality and hyponatremia; I85.10 Secondary esophageal varices without bleeding; L97.929 Non-pressure chronic ulcer of unspecified part of left lower leg with unspecified severity; L97.919 Non-pressure chronic ulcer of unspecified part of right lower leg with unspecified severity; E87.5 Hyperkalemia; I95.9 Hypotension, unspecified; Z23 Encounter for immunization; E03.9 Hypothyroidism, unspecified; K21.9 Gastro-esophageal reflux disease without esophagitis; I25.10 Atherosclerotic heart disease of native coronary artery without angina pectoris; E88.09 Other disorders of plasma-protein metabolism, not elsewhere classified; Z95.1 Presence of aortocoronary bypass graft; Z98.890 Other specified postprocedural states; C06.9 Malignant neoplasm of mouth, unspecified; F32.A Depression, unspecified; Z87.891 Personal history of nicotine dependence; Z79.890 Hormone replacement therapy; Z79.899 Other long term (current) drug therapy; D00.00 Carcinoma in situ of oral cavity, unspecified site; D00.1 Carcinoma in situ of esophagus; D00.2 Carcinoma in situ of stomach; I12.9 Hypertensive chronic kidney disease with stage 1 through stage 4 chronic kidney disease, or unspecified chronic kidney disease; Z86.19 Personal history of other infectious and parasitic diseases; D63.1 Anemia in chronic kidney disease; N18.30 Chronic kidney disease, stage 3 unspecified; I87.8 Other specified disorders of veins
CPT/HCPCS: 36415; 36430; 49083; 71045; 74150; 76705; 80053; 80306; 81001; 82042; 82274; 82570; 82945; 83880; 84156; 84157; 84300; 84443; 84484; 85025; 85060; 85610; 85730; 86850; 86900; 86901; 87070; 87205; 88112; 88305; 89051; 93005; 93970; 97139; J1644; J1940; J2354; J2470; J3010; J7050; P9016; P9047; Q5105

== ENCOUNTER 2025-02-06 11:09 | Inpatient (IN) | payer OTHER ==
[2025-02-06] MEDS ORDERED: Pantoprazole 40 MG VIAL ONE ×2 (11:49→13:28)
[2025-02-06] MEDS ORDERED: Ondansetron PF 4 MG/2 ML Vial ONE (11:49)
[2025-02-06 12:10] LABS: #Basophils Less than 0.03 10x3/uL (0.0-0.2); #Eosinophils Less than 0.03 10x3/uL (0.0-0.7); #Monocytes 1.33 10x3/uL (0.11-0.59); #Neutrophils 10.07 10x3/uL (1.40-6.50); %Basophils 0.2 % (0.0-1.0); %Eosinophils 0.1 % (0.0-10.0); %Lymphocytes 6.0 % (21.0-51.0); %Monocytes 10.9 % (0.0-10.0); %Neutrophils 82.1 % (42.0-75.0); Hematocrit 26.1 % (42.0-52.0); Hemoglobin 7.8 g/dL (14.0-18.0); Mean Corpuscular Hemoglobin 24.7 pg (27.0-31.0); Mean Corpuscular Volume 82.6 fL (78.0-98.0); Platelet Count 189 10x3/uL (130-400); Red Blood Cell (RBC) Count 3.16 mill/uL (4.70-6.10); White Blood Cell (WBC) Count 12.24 10x3/uL (4.8-10.8)
[2025-02-06 12:24] LABS: INR-International Normal Ratio 2.0; PTT 47.5 sec (22.9-36.1); Prothrombin Time 22.7 sec (12.0-14.7)
[2025-02-06 12:27] LABS: ALT (SGPT) 71 U/L (Less than 45); AST (SGOT) 292 U/L (11-34); Albumin 2.2 g/dL (3.1-4.5); Alkaline Phosphatase 703 U/L (40-110); Anion Gap 25 mmol/L (10-20); BUN (Urea Nitrogen) 57 mg/dL (8.4-25.7); Bilirubin, Total 5.9 mg/dL (0.3-1.2); Calc. Creatinine Clearance 0 mL/min (70-130); Calcium 9.2 mg/dL (7.8-10.44); Carbon Dioxide 18 mmol/L (23-31); Chloride 95 mmol/L (98-107); Globulin 4.6 g/dL (2.4-3.5); Glucose 83 mg/dL (80-115); Lipase 63 U/L (8-78); Potassium 5.4 mmol/L (3.5-5.1); Sodium 133 mmol/L (136-145)
[2025-02-06] MEDS ORDERED: cefTRIAXone (ROCEPHIN) 1 GM VIAL ONE (13:28)
[2025-02-06] MEDS ORDERED: Iopamidol-370 76% 500 ML MDV (1 ML CHARGE) ONE (13:32)
[2025-02-06] MEDS ORDERED: KETAMINE 100 MG/ML (5ML VIAL) ONE (17:35)
[2025-02-06] MEDS ORDERED: Rocuronium Bromide 10 MG/ML (10ML VIAL) ONE (17:35)
[2025-02-06] MEDS ORDERED: NOREPINEPHRINE 8 MG/250 ML-D5W 250 ML ONE (17:37)
[2025-02-06] MEDS ORDERED: EPINEPHrine 1 MG/10 ML Abboject SYRINGE ONE (17:43)
[2025-02-06] MEDS ORDERED: Dextrose 50% Abboject 50 ML SYRINGE ONE (17:53)
[2025-02-06] MEDS ORDERED: Calcium Chloride 1 GM/10 ML Abboject SYRINGE ONE (17:53)
[2025-02-06 18:11] LABS: Analyzer IN Cardio ER; Base Excess (BEa) -21.3 mEq/L (-2.0 to +3.0); CO2 Tension 36.7 mmHg (35.0-45.0); Calcium, Ionized (arterial) 1.25 mmol/L (1.12-1.30); Hematocrit-ABG 24 % (42.0-52.0); Hemoglobin (Hb) 8.0 g/dL (14.0-18.0); O2 Tension (PaO2), arterial 143.5 mmHg (> 80.0); Potassium - ABG Lab 5.45 mmol/L (3.70-5.30)
[2025-02-06] MEDS ORDERED: Sodium Bicarb 50 MEQ/50 ML Abboject 8.4% SYRINGE ONE ×2 (18:17→18:29)
[2025-02-06] MEDS ORDERED: Acetaminophen 325 MG TAB PO PRN (18:26)
[2025-02-06] MEDS ORDERED: NOREPINEPHRINE 8 MG/250 ML-D5W 250 ML IVPB PRN (18:40)
[2025-02-06] MEDS ORDERED: Electrolyte Replacement Protocol 1 EACH IVPB ONE (18:40)
[2025-02-06] MEDS ORDERED: Ventilator Sedation Protocol 1 EACH FS SCH (18:45)
[2025-02-06] MEDS ORDERED: Propofol BOLUS 1,000 MG/100 ML VIAL IV PRN (19:00)
[2025-02-06] MEDS ORDERED: Fentanyl BOLUS 100 ML IVPB PRN (19:00)
[2025-02-06] MEDS ORDERED: DISCONTINUE PREVIOUS NARCOTIC PAIN MEDICATIONS AND BENZODIAZEPINES FS SCH (19:00)
[2025-02-06] MEDS ORDERED: Vasopressin In 0.9 % NaCl 40 UNIT in Premix 1 BAG IV SCH (19:00)
[2025-02-06] MEDS ORDERED: Lactulose 20 GM (30 mL) UDCUP PR SCH (21:00)
[2025-02-06] MEDS: Lactulose 10 GM/15 ML Oral Solution PR SCH (22:06)
[2025-02-06 22:23] VITALS: BMI 33.0
[2025-02-06] MEDS: Pantoprazole 40 MG VIAL IVP SCH (22:25)
[2025-02-06 22:30] LABS: Acetaminophen Less than 10 mcg/mL (Less than 10); Salicylate Less than 8.0 mg/dL (Less than 8.0)
[2025-02-06 22:33] LABS: ALT (SGPT) 639 U/L (Less than 45); AST (SGOT) Greater than 4001 U/L (11-34); Albumin 1.9 g/dL (3.1-4.5); Alkaline Phosphatase 684 U/L (40-110); Anion Gap 34 mmol/L (10-20); BUN (Urea Nitrogen) 58 mg/dL (8.4-25.7); Bilirubin, Total 6.0 mg/dL (0.3-1.2); Calc. Creatinine Clearance 19 mL/min (70-130); Calcium 8.9 mg/dL (7.8-10.44); Carbon Dioxide 10 mmol/L (23-31); Chloride 96 mmol/L (98-107); Globulin 4.2 g/dL (2.4-3.5); Glucose 66 mg/dL (80-115); Potassium 5.2 mmol/L (3.5-5.1); Sodium 135 mmol/L (136-145)
[2025-02-06] MEDS ORDERED: Vancomycin Dose by Levels Sliding Scale (Wt > 99) FS SCH (22:45)
[2025-02-06 23:14] LABS: Base Excess (BEa) -15.8 mEq/L (-2.0 to +3.0); Calcium, Ionized (arterial) 1.08 mmol/L (1.12-1.30); Hematocrit-ABG 23 % (42.0-52.0); Hemoglobin (Hb) 7.8 g/dL (14.0-18.0); O2 Tension (PaO2), arterial 89.1 mmHg (> 80.0); Potassium - ABG Lab 5.15 mmol/L (3.70-5.30); pH, Arterial 7.251 (7.35-7.45)
[2025-02-06 23:17] LABS: Actual Bicarbonate (HCO3a) 9.9 mEq/L (22-28); CO2 Tension 23.1 mmHg (35.0-45.0)
[2025-02-06 23:18] LABS: Puncture Site Left Radial artery
[2025-02-06 23:19] LABS: ALV-art Gradient 381.125 mmHg (0-20)
[2025-02-06] MEDS: VANCOMYCIN 2 GRAM/400 ML Premix BAG IVPB SCH (23:41)
[2025-02-07] MEDS: Norepinephrine 8 MG/0.9% NS 250 ML IVPB SCH (00:12)
[2025-02-07] MEDS: Octreotide Acetate 1,250 MCG in Sodium Chloride 0.9% 250 ML 250 ML IVPB SCH (00:20)
[2025-02-07] MEDS: Sodium Bicarb 50 MEQ/50 ML Abboject 8.4% SYRINGE IVP SCH ×2 (02:29→03:26)
[2025-02-07 02:53] LABS: ALT (SGPT) 813 U/L (Less than 45); AST (SGOT) Greater than 4001 U/L (11-34); Albumin 1.5 g/dL (3.1-4.5); Alkaline Phosphatase 599 U/L (40-110); Anion Gap 36 mmol/L (10-20); BUN (Urea Nitrogen) 54 mg/dL (8.4-25.7); Bilirubin, Total 4.9 mg/dL (0.3-1.2); Calc. Creatinine Clearance 20 mL/min (70-130); Calcium 7.9 mg/dL (7.8-10.44); Carbon Dioxide 9 mmol/L (23-31); Chloride 93 mmol/L (98-107); Globulin 3.5 g/dL (2.4-3.5); Glucose 151 mg/dL (80-115); Potassium 5.9 mmol/L (3.5-5.1); Sodium 132 mmol/L (136-145)
[2025-02-07] MEDS: LOKELMA 10 GM PACKET PO SCH (03:25)
[2025-02-07] MEDS: Albumin 25% 25 GM (100 mL) BOT IVPB SCH ×2 (03:25→05:51)
[2025-02-07 03:47] LABS: #Basophils Less than 0.03 10x3/uL (0.0-0.2); #Eosinophils Less than 0.03 10x3/uL (0.0-0.7); #Monocytes 1.63 10x3/uL (0.11-0.59); #Neutrophils 14.94 10x3/uL (1.40-6.50); %Basophils 0.1 % (0.0-1.0); %Eosinophils 0.0 % (0.0-10.0); %Lymphocytes 3.2 % (21.0-51.0); %Monocytes 9.4 % (0.0-10.0); %Neutrophils 85.8 % (42.0-75.0); Hematocrit 20.0 % (42.0-52.0); Hemoglobin 5.7 g/dL (14.0-18.0); Mean Corpuscular Hemoglobin 23.8 pg (27.0-31.0); Mean Corpuscular Volume 83.7 fL (78.0-98.0); Platelet Count 165 10x3/uL (130-400); Red Blood Cell (RBC) Count 2.39 mill/uL (4.70-6.10); White Blood Cell (WBC) Count 17.40 10x3/uL (4.8-10.8)
[2025-02-07 03:56] LABS: INR-International Normal Ratio 4.2; Prothrombin Time 40.6 sec (12.0-14.7)
[2025-02-07 03:57] LABS: PTT 63.1 sec (22.9-36.1)
[2025-02-07 04:07] LABS: ALT (SGPT) 880 U/L (Less than 45); AST (SGOT) Greater than 4001 U/L (11-34); Albumin 1.5 g/dL (3.1-4.5); Alkaline Phosphatase 621 U/L (40-110); Anion Gap 35 mmol/L (10-20); BUN (Urea Nitrogen) 55 mg/dL (8.4-25.7); Bilirubin, Total 5.0 mg/dL (0.3-1.2); Calc. Creatinine Clearance 20 mL/min (70-130); Calcium 8.0 mg/dL (7.8-10.44); Carbon Dioxide 11 mmol/L (23-31); Chloride 95 mmol/L (98-107); Globulin 3.4 g/dL (2.4-3.5); Glucose 133 mg/dL (80-115); Potassium 5.7 mmol/L (3.5-5.1); Sodium 135 mmol/L (136-145)
[2025-02-07 04:15] LABS: Base Excess -13.5 mEq/L (-2.0 to +3.0); Calcium, Ionized (venous) 0.91 mmol/L (1.16-1.32); Chloride (VBG) 93 mmol/L (98-106); Hematocrit-VBG 20 % (42.0-52.0); Hemoglobin (Hb) 6.7 g/dL (12.6-17.4); Potassium (VBG) 5.47 mmol/L (3.70-5.30); Sodium 131 mmol/L (133-146)
[2025-02-07] MEDS: Sodium Bicarb 50 MEQ/50 ML Abboject 8.4% SYRINGE ONE ×2 (04:50)
[2025-02-07 07:44] VITALS: TEMP 97.2
[2025-02-07 08:21] LABS: ALT (SGPT) 1000 U/L (Less than 45); AST (SGOT) Greater than 4001 U/L (11-34); Albumin 2.3 g/dL (3.1-4.5); Alkaline Phosphatase 596 U/L (40-110); Anion Gap 40 mmol/L (10-20); BUN (Urea Nitrogen) 57 mg/dL (8.4-25.7); Bilirubin, Total 4.7 mg/dL (0.3-1.2); Calc. Creatinine Clearance 20 mL/min (70-130); Calcium 8.0 mg/dL (7.8-10.44); Carbon Dioxide 13 mmol/L (23-31); Chloride 92 mmol/L (98-107); Globulin 2.7 g/dL (2.4-3.5); Glucose 74 mg/dL (80-115); Potassium 5.5 mmol/L (3.5-5.1); Sodium 139 mmol/L (136-145)
[2025-02-07] MEDS ORDERED: cefTRIAXone\\ROCEPHIN 2 GM in Sodium Chloride 0.9% 100 ML IVPB SCH ×2 (09:30→20:00)
[2025-02-07 09:46] LABS: #Basophils Less than 0.03 10x3/uL (0.0-0.2); #Eosinophils Less than 0.03 10x3/uL (0.0-0.7); #Monocytes 1.88 10x3/uL (0.11-0.59); #Neutrophils 13.23 10x3/uL (1.40-6.50); %Basophils 0.1 % (0.0-1.0); %Eosinophils 0.0 % (0.0-10.0); %Lymphocytes 4.1 % (21.0-51.0); %Monocytes 11.8 % (0.0-10.0); %Neutrophils 82.7 % (42.0-75.0); Hematocrit 18.6 % (42.0-52.0); Hemoglobin 5.9 g/dL (14.0-18.0); Mean Corpuscular Hemoglobin 26.0 pg (27.0-31.0); Mean Corpuscular Volume 81.9 fL (78.0-98.0); Platelet Count 130 10x3/uL (130-400); Red Blood Cell (RBC) Count 2.27 mill/uL (4.70-6.10); White Blood Cell (WBC) Count 16.00 10x3/uL (4.8-10.8)
[2025-02-07 11:17] LABS: Actual Bicarbonate (HCO3a) 8.7 mEq/L (22-28); pH, Arterial 6.991 (7.35-7.45)
[2025-02-07] MEDS: Dextrose 50% Abboject 50 ML SYRINGE ONE (11:39)
[2025-02-07] MEDS ORDERED: Glucagon 1 MG/ML KIT IM PRN (12:00)
[2025-02-07] MEDS ORDERED: Dextrose 50% Abboject 50 ML SYRINGE SLOW IVP PRN (12:00)
[2025-02-07 13:05] VITALS: BMI 33.0
[2025-02-07 14:53] VITALS: BP 78/35
[2025-02-10 12:50] LABS: Actual Bicarbonate (HCO3v) 11.4 mEq/L (22-28)
== END 2025-02-07 16:06 | disposition expired | DRG 871 ==
LOC: EEVIPCON 11:09 → ERS 11:09 → ERHOLD 18:26 → CCU 20:37
PROVIDERS: ADMIT Family Medicine; ATTEND Family Medicine
PROC: 06HY33Z Insertion of Infusion Device into Lower Vein, Percutaneous Approach (ICD-10-PCS; principal; 2025-02-06)
PROC: 0BH17EZ Insertion of Endotracheal Airway into Trachea, Via Natural or Artificial Opening (ICD-10-PCS; 2025-02-06)
PROC: 5A1935Z Respiratory Ventilation, Less than 24 Consecutive Hours (ICD-10-PCS; 2025-02-06)
PROC: 3E033XZ Introduction of Vasopressor into Peripheral Vein, Percutaneous Approach (ICD-10-PCS; 2025-02-06)
PROC: 30233N1 Transfusion of Nonautologous Red Blood Cells into Peripheral Vein, Percutaneous Approach (ICD-10-PCS; 2025-02-06)
PROC: 3E04329 Introduction of Other Anti-infective into Central Vein, Percutaneous Approach (ICD-10-PCS; 2025-02-06)
PROC: 3E043XZ Introduction of Vasopressor into Central Vein, Percutaneous Approach (ICD-10-PCS; 2025-02-06)
PROC: 4A133R1 Monitoring of Arterial Saturation, Peripheral, Percutaneous Approach (ICD-10-PCS; 2025-02-06)
PROC: 06HY33Z Insertion of Infusion Device into Lower Vein, Percutaneous Approach (ICD-10-PCS; 2025-02-07)
PROC: XX20X89 Monitoring of Brain Electrical Activity, Computer-aided Detection and Notification, New Technology Group 9 (ICD-10-PCS; 2025-02-07)
PROC: 0D9670Z Drainage of Stomach with Drainage Device, Via Natural or Artificial Opening (ICD-10-PCS; 2025-02-07)
PROC: 3E03329 Introduction of Other Anti-infective into Peripheral Vein, Percutaneous Approach (ICD-10-PCS; 2025-02-07)
PROC: 30233J1 Transfusion of Nonautologous Serum Albumin into Peripheral Vein, Percutaneous Approach (ICD-10-PCS; 2025-02-07)
PROC: 30233L1 Transfusion of Nonautologous Fresh Plasma into Peripheral Vein, Percutaneous Approach (ICD-10-PCS; 2025-02-07)
PROC: 30233K1 Transfusion of Nonautologous Frozen Plasma into Peripheral Vein, Percutaneous Approach (ICD-10-PCS; 2025-02-07)
DX: A41.9 Sepsis, unspecified organism (principal); G93.41 Metabolic encephalopathy; K76.3 Infarction of liver; K76.7 Hepatorenal syndrome; J96.01 Acute respiratory failure with hypoxia; R65.21 Severe sepsis with septic shock; K72.00 Acute and subacute hepatic failure without coma; C22.0 Liver cell carcinoma; N17.9 Acute kidney failure, unspecified; E87.20 Acidosis, unspecified; N18.5 Chronic kidney disease, stage 5; E87.1 Hypo-osmolality and hyponatremia; K92.1 Melena; B19.10 Unspecified viral hepatitis B without hepatic coma; R18.0 Malignant ascites; D68.4 Acquired coagulation factor deficiency; E72.20 Disorder of urea cycle metabolism, unspecified; I13.2 Hypertensive heart and chronic kidney disease with heart failure and with stage 5 chronic kidney disease, or end stage renal disease; Z66 Do not resuscitate; Z51.5 Encounter for palliative care; K74.60 Unspecified cirrhosis of liver; E87.5 Hyperkalemia; I25.10 Atherosclerotic heart disease of native coronary artery without angina pectoris; Z98.890 Other specified postprocedural states; Z95.1 Presence of aortocoronary bypass graft; I50.9 Heart failure, unspecified; Z79.899 Other long term (current) drug therapy; K21.9 Gastro-esophageal reflux disease without esophagitis; Z87.891 Personal history of nicotine dependence; E88.09 Other disorders of plasma-protein metabolism, not elsewhere classified; E03.9 Hypothyroidism, unspecified; Z79.890 Hormone replacement therapy; D63.1 Anemia in chronic kidney disease; K76.82 Hepatic encephalopathy; I87.8 Other specified disorders of veins; K72.10 Chronic hepatic failure without coma; Z85.89 Personal history of malignant neoplasm of other organs and systems; L97.519 Non-pressure chronic ulcer of other part of right foot with unspecified severity; B18.2 Chronic viral hepatitis C
CPT/HCPCS: 31500; 36415; 36416; 36430; 36600; 71045; 74177; 80053; 80307; 82140; 82805; 83605; 83690; 85025; 85610; 85730; 86850; 86900; 86901; 87040; 93005; 94002; 94003; 95812; 95813; 95816; 96374; 96375; 96376; A4217; J0165; J0696; J1815; J2060; J2185; J2250; J2354; J2470; J3375; J7050; J7070; J7999; P9016; P9047; P9059; Q9967